=== PATIENT | female | born 1970 | race Caucasian/White ===

== ENCOUNTER → 2016-02-13 | Outpatient (CLI) | payer OTHER ==
[~2016-02-13] MED LIST: AMOX875T PO; CALC-5 PO; CETI10TA84 PO; DOXY100C76 PO; LEVO-371 PO; MULT-506 PO; PRED10TA PO; PRLSR20 PO; RSTOPS OPB; SERT25TA PO
--- NOTE | 2016-02-13 15:49 | MAMMOGRAPHY REPORT ---
BILATERAL DIGITAL SCREENING MAMMOGRAM TOMOSYNTHESIS WITH CAD: 02/13/2016 CLINICAL HISTORY: Routine screening. Patient has no complaints. TECHNIQUE: Breast tomosynthesis in addition to standard 2D mammography was performed. Current study was also evaluated with a Computer Aided Detection (CAD) system. COMPARISON: Comparison is made to exams dated: 02/07/2015 mammogram, 01/02/2013 mammogram, 12/10/19 12 mammogram, 06/01/2010 mammogram, 12/05/2011 mammogram, and 01/02/2013 ultrasound - [facility]. BREAST COMPOSITION: There are scattered areas of fibroglandular density in both breasts. FINDINGS: There are benign coarse calcifications within the right breast. No new suspicious mass, a rchitectural distortion or cluster of microcalcifications is seen. IMPRESSION: ACR BI-RADS CATEGORY 1: NEGATIVE There is no mammographic evidence of malignancy. A 1 year screening mammogram is recommended. The p atient will receive written notification of the results. Approximately 10% of breast cancers are not detected with mammography. A negative mammographic repor t should not delay biopsy if a clinically suggestive mass is present. Adwoa Mcgraw M.D. ay/:02/13/2016 15:24:04 Line Puller: Rhea AQUINO(R)(M), [facility] letter sent: Normal 1/2 BI-RADS Code: ACR BI-RADS Category 1: Negative
== END | disposition home or self-care (01) ==
LOC: C.MAMM 15:00
PROVIDERS: ATTEND Obstetrics & Gynecology
DX: Z12.31 Encounter for screening mammogram for malignant neoplasm of breast (principal)

== ENCOUNTER → 2016-04-11 | Outpatient (CLI) | payer OTHER ==
--- NOTE | 2016-04-11 15:48 | DIAGNOSTIC IMAGING REPORT ---
CHEST 2 VIEWS ROUTINE CLINICAL HISTORY: Shortness breath COMPARISON STUDY: 02/22/2012 FINDINGS: The heart is borderline enlarged. There is no failure. There is no focal pulmonary consolidation. There are no pleural effusions. An opacity at the level of the left cardiophrenic angle is felt to be atelectatic.[ IMPRESSION: No active disease in the chest. Electronically signed by: Oumar Comer M.D. 04/11/2016 3:47 PM Dictated Date/Time: 04/11/2016 3:46 PM
== END | disposition home or self-care (01) ==
LOC: C.RADBC 15:34
PROVIDERS: ATTEND Nurse Practitioner Adult Health
DX: R06.02 Shortness of breath (principal)

== ENCOUNTER → 2016-05-17 | Outpatient (CLI) | payer OTHER ==
[~2016-05-17] MED LIST changes: -LEVO-371 PO; +LEVO5TAB2 PO
--- NOTE | 2016-05-17 08:45 | DIAGNOSTIC IMAGING REPORT ---
CHEST 2 VIEWS ROUTINE HISTORY: COUGH COMPARISON: Chest 04/11/2016. FINDINGS: The lungs are clear. Cardiac silhouette is normal in size. No pleural effusions. No pneumothorax. Cholecystectomy. IMPRESSION: No acute process. Electronically signed by: Tacos Wise M.D. 05/17/2016 8:43 AM Dictated Date/Time: 05/17/2016 8:42 AM
[2016-05-17 10:48] LABS: BASO % 0.3 %; BASO ABS # 0.02 K/uL (0-0.2); COMPLETE YES; EOS % 1.6 %; HEMATOCRIT 39.7 % (37-47); IG% 0.2 %; LYMPH ABS # 1.43 K/uL (1.2-3.4); MEAN CELL VOLUME 84.8 fL (80-100); MEAN CORPUSCULAR HEMOGLOBIN 30.6 pg (25-34); MEAN PLATELET VOLUME 9.1 fL (7.4-10.4); MONO % 5.9 %; PLATELET COUNT 189 K/uL (130-400); RED BLOOD COUNT 4.68 M/uL (4.2-5.4); WHITE BLOOD COUNT 6.22 K/uL (4.8-10.8)
[2016-05-17 10:52] LABS: URINE APPEARANCE CLEAR (CLEAR); URINE BILIRUBIN NEG (NEG); URINE COLOR YELLOW; URINE NITRITE NEG (NEG); URINE SPECIFIC GRAVITY 1.018 (1.000-1.030); UROBILINOGEN NEG (NEG)
[2016-05-17 10:58] LABS: ALT/SGPT 32 U/L (12-78); AST/SGOT 14 U/L (15-37); BLOOD UREA NITROGEN 11 mg/dl (7-18); BUN/CREATININE RATIO 11.8 (10-20); CALCIUM 8.9 mg/dl (8.5-10.1); CARBON DIOXIDE 26 mmol/L (21-32); CHLORIDE 109 mmol/L (98-107); GLUCOSE 92 mg/dl (70-99); POTASSIUM 4.1 mmol/L (3.5-5.1); SODIUM 141 mmol/L (136-145)
[2016-05-17 11:01] LABS: ALB/GLOB RATIO 1.3 (0.9-2); ALKALINE PHOSPHATASE 62 U/L (45-117)
[2016-05-17 11:03] LABS: MANUAL MICROSCOPIC REQUIRED? NO; REVIEW REQ? NO
== END | disposition home or self-care (01) ==
LOC: C.RADBC 08:05
PROVIDERS: ATTEND Nurse Practitioner Adult Health
DX: R05 Cough (principal); R39.15 Urgency of urination; R06.02 Shortness of breath

== ENCOUNTER → 2016-06-06 | Outpatient (CLI) | payer OTHER ==
--- NOTE | 2016-06-06 08:17 | DIAGNOSTIC IMAGING REPORT ---
CT SCAN OF THE CHEST WITHOUT IV CONTRAST CLINICAL HISTORY: Bronchitis and dyspnea. COMPARISON STUDY: Chest x-ray dated 05/17/2016. TECHNIQUE: CT scan of the thorax was performed from the thoracic inlet to the upper abdomen. Images are reviewed in the axial, sagittal, and coronal planes. IV contrast was not administered for this examination as per the referring clinician. CT DOSE: 838.69 mGy.cm FINDINGS: Thyroid: Imaged portions of the thyroid gland are normal in size and attenuation. Coarse calcifications are noted in the right thyroid lobe. Thoracic aorta: The thoracic aorta is normal in caliber and demonstrates standard 3-vessel arch anatomy. Heart: The heart is mildly enlarged and there is a small pericardial effusion. Lungs and pleural spaces: There are small pleural effusions with dependent atelectasis. No airspace consolidation is identified typical for pneumonia. The trachea and central airways are clear. Mediastinum: There is no mediastinal lymphadenopathy. Rayna: Not well assessed without IV contrast. Axillae: There is no axillary lymphadenopathy. Upper abdomen: There is a tiny hiatal hernia. Cholecystectomy clips are noted. Skeletal structures: No lytic or blastic bony lesions are seen. IMPRESSION: 1. Mild cardiac enlargement and small pericardial effusion. 2. Small pleural effusions and dependent atelectasis. 3. There is no airspace consolidation identified typical for pneumonia. Electronically signed by: Kai Craft M.D. 06/06/2016 8:15 AM Dictated Date/Time: 06/06/2016 8:11 AM
[2016-06-06 08:20] LABS: BLOOD UREA NITROGEN 11 mg/dl (7-18); BUN/CREATININE RATIO 13.8 (10-20); CARBON DIOXIDE 25 mmol/L (21-32); CHLORIDE 106 mmol/L (98-107); CREATININE 0.82 mg/dl (0.60-1.20); GLUCOSE 98 mg/dl (70-99); SODIUM 140 mmol/L (136-145)
--- NOTE | 2016-06-06 08:21 | DIAGNOSTIC IMAGING REPORT ---
CT SCAN OF THE PARANASAL SINUSES CLINICAL HISTORY: Chronic sinusitis. COMPARISON STUDY: CT scan of the paranasal sinuses dated 08/07/2006. TECHNIQUE: High-resolution CT scan of the paranasal sinuses is performed. Images are reviewed in the axial, sagittal, and coronal planes. IV contrast was not administered for this examination. FINDINGS: Maxillary antra: Trace dependent mucosal thickening is seen bilaterally. Anterior ethmoid sinuses: Opacified on the right. Clear on the left. Posterior ethmoid sinuses: Subtotally opacified on the right. Moderate mucosal thickening is seen on the left. Sphenoid sinuses: Moderate mucosal thickening is seen in the right. Trace mucosal thickening is seen on left. Frontal sinuses: There is opacification of the right frontal sinus. The left frontal sinus is clear. Ostiomeatal complexes: Significantly narrowed by mucosal thickening bilaterally. Frontoethmoidal and sphenoethmoidal recesses: The sphenoethmoidal recesses are nearly occluded bilaterally. The right frontoethmoidal recess is occluded. The left frontoethmoidal recess is clear. Carotid arteries: The carotid arteries are covered and without septal attachments. Ethmoid roofs: There is asymmetric elevation of the left ethmoid roof as compared to the right. Nasal turbinates: Normal in appearance. Nasal septum: There is mild rightward deviation of the bony nasal septum. Optic nerves: Covered. Orbits: The bony orbits are intact. Orbital contents are normal in appearance. Calvarium: The imaged calvarium is normal in appearance Mastoid air cells: There is a small right mastoid effusion. The left mastoid air cells are clear. Brain parenchyma: Partially visualized brain parenchyma is within normal limits. IMPRESSION: Paranasal sinus disease as above. Electronically signed by: Kai Craft M.D. 06/06/2016 8:19 AM Dictated Date/Time: 06/06/2016 8:15 AM
[2016-06-06 08:43] LABS: CALCIUM 9.4 mg/dl (8.5-10.1)
[2016-06-06 09:26] LABS: BASO % 0.1 %; BASO ABS # 0.01 K/uL (0-0.2); COMPLETE YES; EOS % 1.3 %; HEMATOCRIT 40.2 % (37-47); IG% 0.1 %; LYMPH % 19.9 %; LYMPH ABS # 1.52 K/uL (1.2-3.4); MEAN CELL VOLUME 86.8 fL (80-100); MEAN CORPUSCULAR HEMOGLOBIN 31.3 pg (25-34); MEAN CORPUSCULAR HGB CONC 36.1 g/dl (32-36); MEAN PLATELET VOLUME 9.2 fL (7.4-10.4); MONO % 4.2 %; NEUT % 74.4 %; PLATELET COUNT 206 K/uL (130-400); RED BLOOD COUNT 4.63 M/uL (4.2-5.4); WHITE BLOOD COUNT 7.64 K/uL (4.8-10.8)
[2016-06-06 09:45] LABS: INR 0.9 (0.9-1.1)
[2016-06-08 14:38] LABS: QUANTIF TB AG-NIL <0.00 IU/ML; QUANTIFERON NIL 0.04 IU/ML
[2016-06-19 22:20] LABS: IGE RECEPTOR AB(ANTI-IgE IgG)* <6 ng/mL (<168); IGG SERUM 706 mg/dL (694-1618)
== END | disposition home or self-care (01) ==
LOC: C.CTS 07:18
PROVIDERS: ATTEND Physician Assistant
DX: J20.9 Acute bronchitis, unspecified (principal); R06.02 Shortness of breath; R05 Cough; J32.9 Chronic sinusitis, unspecified; I51.7 Cardiomegaly

== ENCOUNTER → 2016-07-03 | Outpatient (CLI) | payer OTHER ==
--- NOTE | 2016-07-03 07:57 | DIAGNOSTIC IMAGING REPORT ---
CT SCAN OF THE PARANASAL SINUSES CLINICAL HISTORY: Chronic sinusitis. COMPARISON STUDY: CT scan of the paranasal sinuses dated 06/06/2016. TECHNIQUE: High-resolution CT scan of the paranasal sinuses is performed. Images are reviewed in the axial, sagittal, and coronal planes. IV contrast was not administered for this examination. The examination is performed using the fusion protocol. CT DOSE: 553.60 mGy.cm FINDINGS: Maxillary antra: There is near complete opacification of the right maxillary antrum. Advanced mucosal thickening with subtotal opacification is seen in the left maxillary antrum. Anterior ethmoid sinuses: Subtotally opacified bilaterally. Posterior ethmoid sinuses: Mild mucosal thickening seen bilaterally. Sphenoid sinuses: Moderate mucosal thickening is identified, left greater than right. Frothy secretions are present on the left. Frontal sinuses: There is complete opacification of the right frontal sinus. There is subtotal opacification of the left frontal sinus. Ostiomeatal complexes: Occluded bilaterally. Frontoethmoidal and sphenoethmoidal recesses: Occluded bilaterally. Carotid arteries: The carotid arteries are covered and without septal attachments. Ethmoid roofs: There is slightly asymmetric elevation of left ethmoid roof as compared to the right. Nasal turbinates: Normal in appearance. Nasal septum: There is mild rightward deviation of the bony nasal septum. Optic nerves: Covered. Orbits: The bony orbits are intact. Orbital contents are normal in appearance. Calvarium: The imaged calvarium is normal in appearance Mastoid air cells: There is a trace right mastoid effusion. The left mastoid air cells are clear. Brain parenchyma: Partially visualized brain parenchyma is within normal limits. IMPRESSION: Findings are consistent with pansinusitis as above. This has significantly worsened as compared to 06/06/2016 Electronically signed by: Kai Craft M.D. 07/03/2016 7:55 AM Dictated Date/Time: 07/03/2016 7:52 AM
== END | disposition home or self-care (01) ==
LOC: C.CTS 07:31
DX: J34.3 Hypertrophy of nasal turbinates (principal)

== ENCOUNTER → 2016-10-29 | Outpatient (CLI) | payer OTHER ==
[~2016-10-29] MED LIST changes: -CETI10TA84 PO; +LEVO-371 PO; -LEVO5TAB2 PO; -RSTOPS OPB
[2016-10-29 17:15] LABS: BASO % 0.1 %; BASO ABS # 0.01 K/uL (0-0.2); COMPLETE YES; EOS % 0.1 %; HEMATOCRIT 42.9 % (37-47); IG% 0.1 %; LYMPH % 8.5 %; LYMPH ABS # 0.64 K/uL (1.2-3.4); MEAN CELL VOLUME 86.8 fL (80-100); MEAN CORPUSCULAR HGB CONC 35.7 g/dl (32-36); MEAN PLATELET VOLUME 9.5 fL (7.4-10.4); MONO % 1.6 %; NEUT % 89.6 %; PLATELET COUNT 241 K/uL (130-400); RED BLOOD COUNT 4.94 M/uL (4.2-5.4); WHITE BLOOD COUNT 7.55 K/uL (4.8-10.8)
[2016-10-29 17:16] LABS: POTASSIUM 4.5 mmol/L (3.5-5.1)
[2016-10-29 17:18] LABS: PARTIAL THROMBOPLASTIN RATIO 1.1; PROTHROMBIN TIME (PATIENT) 10.4 SECONDS (9.0-12.0)
== END | disposition home or self-care (01) ==
LOC: C.LABBC 12:26
DX: Z01.818 Encounter for other preprocedural examination (principal)

== ENCOUNTER → 2016-11-02 | Day surgery (SDC) | payer OTHER ==
[2016-09-26 10:27] VITALS: Ht 157.5 cm; Wt 65.9 kg
[~2016-11-02] VITALS: Ht 157.5 cm; Wt 65.9 kg
[~2016-11-02] MED LIST changes: +ATROPINE SULFATE 0.1 MG/ML 5ML SYR IV PRN; +CEFAZOLIN 2000 MG/60 ML D5W IV SCH; +DEXAMETHASONE SOD INJ 4 MG/ML VIAL ONE; +DiphenhydrAMINE HCL 50 MG/ML VIAL ONE; +EpHEDrine SULFATE INJ 50 MG/ML AMP IV PRN; +EpINEphrine INJ 1MG/ML AMP 1 MG/ML AMP ONE; +FENTANYL CITRATE INJ 50 MCG/1 ML 2 ML VIAL IV PRN; +FENTANYL CITRATE INJ 50 MCG/1 ML 2 ML VIAL ONE; +GLYCOPYRROLATE INJ 0.2 MG/ML VIAL ONE; +HYDROCODONE/ACETAMOPHEN 5/325MG TAB PO PRN; +LACTATED RINGER'S 1000ML 1,000 ML IV SCH; +LIDOCAINE 4% MPF SOAK 5 ML = 1 DOSE TOP ONE; +LIDOCAINE HCL 2% 2 ML VIAL (20MG/ML) ONE; +LIDOCAINE/EPINEPHRINE 1% INJ 50 ML VIAL ONE; +NEOSTIGMINE METHYLSULFATE 5 MG/5 ML SYR ONE; +ONDANSETRON INJ 2 MG/ML 2 ML VIAL IV PRN; +ONDANSETRON INJ 2 MG/ML 2 ML VIAL ONE; +OXYMETAZOLINE HCL 0.05% NA SPR 15 ML BTL PRN; +OXYMETAZOLINE HCL 0.05% NA SPR 15 ML BTL SCH; +PROMETHAZINE HCL INJ 25 MG/ML 1 ML VIAL ONE; +PROMETHAZINE HCL INJ 6.25 MG in SODIUM CHLORIDE 0.9% 50ML 50 ML IV PRN; +PROPOFOL IV EMULSION 10 MG/ML 20 ML VIAL IV ONE
--- NOTE | 2016-11-02 09:20 | History and Physical: Surg Cnt ---
History & Physical Date Nov 02, 2016. Chief Complaint SINUSITIS History of Present Illness The patient is a 46 year old female with complaints of CHRONIC SINUSITIS DESPITE MAXIMAL MEDICAL THERAPY WITH ANTIBIOTICS AND STEROIDS. POST-RX CT SINUS SHOWS PANSINUSITIS. Past Medical/Surgical History PMH: CHRONIC SINUSITIS, ALLERGIC RHINITIS, DEPRESSION, ANXIETY, LPR PSH: S/P T&A, S/P BMT, S/P WILY, S/P HYSTERECTOMY Additional History Hepatic Disease: No Endocrine Disorder: No Kidney Disease: No Hypertension: No Heart Disease: No Bleeding Tendencies: No Infectious Diseases: No Allergies Coded Allergies: No Known Allergies (Unverified , NONE, 11/02/16) Home Medications Scheduled Amoxicillin & Pot Clavulanate (Augmentin 875-125 mg), 1 TAB PO BID Calcium-Magnesium W/ Vitamin D (Calcium 500), 3 TABS PO DAILY Doxycycline Monohydrate (Monodox), 100 MG PO BID Levocetirizine Dihydrochloride (Xyzal), 1 TAB PO QAM Multivitamin (Multivitamin), 1 TAB PO DAILY Prednisone (Prednisone), 10 MG PO UD Sertraline (Zoloft), 25 MG PO QPM Scheduled PRN Omeprazole (Prilosec), 20 MG PO DAILY PRN for heartburn Physical Examination Skin: warm/dry, no rash Eyes: normal inspection, EOMI, sclerae normal ENT: + pertinent finding (MILD R DNS, MODERATE B ITH) Head: normocephalic, atraumatic Neck: supple, no adenopathy, trachea midline Respiratory/Chest: lungs clear, normal breath sounds, no respiratory distress Cardiovascular: regular rate, rhythm, no edema, no murmur Diagnosis CRS, DNS, B ITH Plan of Treatment IMAGE-GUIDED B FESS, B INF TURB REDUCTION, POSSIBLE SEPTOPLASTY
--- NOTE | 2016-11-02 10:23 | [facility] Operative Report ---
Operative Report Operative Date Nov 02, 2016. Pre-Operative Diagnosis Chronic sinusitis, Bilateral Inferior Turbinate Hypertrophy Post-Operative Diagnosis Same as preop Procedure(s) Performed Bilateral Image Guided Endoscopic Sinus Surgery, Bilateral Inferior Turbinate Reduction Surgeon Dr. Gaspar Applications Instructor Surgeon(s) None Estimated Blood Loss 10 mL Findings POLYPOID MUCOSAL THICKENING INVOLVING ALL PARANASAL SINUSES AND MODERATE B ITH Specimens None I attest to the content of the Intraoperative Record and any orders documented therein. Any exceptions are noted below.
--- NOTE | 2016-11-02 10:26 | Discharge Instructions ---
Discharge Instructions Date of Service Nov 02, 2016. Admission Reason for Admission: Hypertrophy Of Both Nasal Turbinates Discharge Discharge Diagnosis / Problem: SAME Discharge Goals Goal(s): Therapeutic intervention Activity Recommendations Activity Limitations: as noted below 1. LIGHT ACTIVITY AND NO NOSE BLOWING FOR 2 WEEKS 2. NO DRIVING WHILE ON NORCO . Current Hospital Diet Patient's current hospital diet: Discharge Diet Recommended Diet: Regular Diet Procedures Procedures Performed: Bilateral Image Guided Endoscopic Sinus Surgery, Bilateral Inferior Turbinate Reduction Pending Studies Studies pending at discharge: no Medical Emergencies . Who to Call and When: Medical Emergencies: If at any time you feel your situation is an emergency, please call 911 immediately. . Non-Emergent Contact Non-Emergency issues call your: Surgeon . . "Provider Documentation" section prepared by Wes Gaspar. . VTE Core Measure Inpt VTE Proph given/why not?: SCD's
--- NOTE | 2016-11-02 11:46 | OPERATIVE REPORT ---
DATE OF OPERATION: 11/02/2016 PREOPERATIVE DIAGNOSES: 1. Chronic rhinosinusitis. 2. Bilateral inferior turbinate hypertrophy. POSTOPERATIVE DIAGNOSES: 1. Chronic rhinosinusitis. 2. Bilateral inferior turbinate hypertrophy. PROCEDURES: Image guided bilateral endoscopic sinus surgery consisting of: 1. Bilateral maxillary antrostomies. 2. Bilateral complete ethmoidectomies. 3. Bilateral sphenoidotomies. 4. Balloon sinuplasty assisted bilateral frontal sinusotomies. 5. Bilateral inferior turbinate outfracture and turbinoplasty. SURGEON: Dr. Wes Gaspar. ANESTHESIA: General endotracheal. ESTIMATED BLOOD LOSS: 10 mL. FINDINGS: 1. Polypoid mucosal thickening involving all the paranasal sinuses bilaterally. 2. Moderate bilateral inferior turbinate hypertrophy. SPECIMENS: None. COMPLICATIONS: None. INDICATIONS FOR THE PROCEDURE: The patient is a 46-year-old female with a history of chronic sinusitis, which has been refractory to maximal medical therapy including systemic antibiotics and steroids. She was given perioperative antibiotics and steroids and presents for the above-mentioned procedures on an outpatient elective basis. DESCRIPTION OF PROCEDURE: After informed consent had been obtained from the patient, the patient was wheeled to the operating room and placed on the operating table in the supine position. Monitors were placed. After induction of general endotracheal anesthesia, the patient was prepped in the usual fashion for image guided sinus surgery. The [employer] headset was placed over the forehead and was registered, verified and calibrated and used for the frontal and sphenoid sinus portions of the case primarily. Lidocaine and epinephrine pledgets were placed in the bilateral nasal cavities and pressure applied. The left-sided pledgets were removed. A freer elevator was used to medialize the left middle turbinate and the left middle turbinate and lateral nasal wall were injected with 1% lidocaine with 1:100,000 epinephrine. A lidocaine and epinephrine pledget was then placed in the left middle meatus. The right side was then addressed in a similar fashion. The left-sided pledget was removed and a [place] elevator was used to incise the uncinate process, which was removed using straight Pacheco-Cut forceps and powered instrumentation. The natural ostium of the left maxillary sinus was identified and this was enlarged anteriorly, inferiorly, and posteriorly using backbiting forceps and powered instrumentation. A complete ethmoidectomy was then performed using powered instrumentation. A transethmoid approach to the sphenoid sinus was then undertaken and the sphenoid sinus was entered. The natural ostium of the sphenoid sinus was enlarged medially and inferiorly using powered instrumentation. Using a frontal sinus suction under image guidance, the left frontal sinus was cannulated. A #7 frontal sinus balloon was then inserted into the left frontal sinus and inflated to 12 atmospheres of pressure at 2 different locations to dilate the left frontal recess. After this had been performed, powered instrumentation was used to perform a left frontal sinusotomy. A pledget was then placed into the left middle meatus. The right side was then addressed in a similar fashion. The intraoperative findings were polypoid mucosal thickening involving all the paranasal sinuses bilaterally, but most impressively involving the ethmoid sinuses. A Gold elevator was then used to infracture and subsequently outfracture the inferior turbinates bilaterally. These were injected with 1% lidocaine with 1:100,000 epinephrine. A 2.0-mm turbinate blade using powered instrumentation was then used to perform bilateral inferior turbinoplasties in a submucosal fashion. The sinonasal cavities were then suctioned. Merogel was then placed in the bilateral ethmoid sinuses/middle meati. An orogastric tube was placed and the stomach was suctioned free of any stomach contents. This marked the end of the case. The patient tolerated the procedure well. There were no complications. All the instrumentation was removed from the patient. The patient was extubated and transferred to the recovery room in stable condition. I attest to the content of the Intraoperative Record and any orders documented therein. Any exception s are noted below.
[2016-11-02 12:20] VITALS: BP 133/74; PULSE 76; O2SAT 95
--- NOTE | 2016-11-02 12:31 | Anesthesia Progress Nt - [facility] ---
Anesthesia Post Op Note Date & Time Nov 02, 2016 at 12:31 Vital Signs Pain Intensity: 4 Vital Signs Past 12 Hours Date Time Temp Pulse Resp B/P (MAP) Pulse Ox O2 Delivery O2 Flow Rate FiO2 11/02/16 12:20 76 16 133/74 (93) 95 Room Air 11/02/16 11:40 36.4 74 16 128/84 (99) 92 Room Air 11/02/16 11:37 84 17 94 11/02/16 11:37 81 17 11/02/16 11:32 72 14 92 11/02/16 11:32 72 14 11/02/16 11:31 82 13 135/79 95 11/02/16 11:31 80 13 11/02/16 11:30 37.3 72 13 135/79 93 Room Air 11/02/16 11:26 67 15 134/81 97 11/02/16 11:26 69 15 11/02/16 11:21 65 17 135/87 98 11/02/16 11:21 66 17 11/02/16 11:16 76 19 11/02/16 11:16 76 19 133/88 94 11/02/16 11:11 70 7 11/02/16 11:11 69 7 139/84 98 11/02/16 11:06 71 6 11/02/16 11:06 71 6 132/85 98 11/02/16 11:01 68 7 11/02/16 11:01 69 7 127/78 98 11/02/16 10:56 72 10 11/02/16 10:56 73 10 136/80 99 11/02/16 10:51 67 15 11/02/16 10:51 67 15 130/79 99 11/02/16 10:46 66 13 11/02/16 10:46 67 13 129/80 99 11/02/16 10:41 74 19 11/02/16 10:41 77 19 130/82 99 11/02/16 10:37 134/71 11/02/16 10:36 79 98 11/02/16 10:36 37.1 88 12 134/71 97 Humidified Oxygen 8 Mask 11/02/16 10:36 79 11/02/16 08:37 36.5 78 16 137/91 (106) 96 Room Air Notes Mental Status: alert / awake / arousable, participated in evaluation Pt Amnestic to Procedure: Yes Nausea / Vomiting: adequately controlled Pain: adequately controlled Airway Patency, RR, SpO2: stable & adequate BP & HR: stable & adequate Hydration State: stable & adequate Anesthetic Complications: no major complications apparent
== END | disposition home or self-care (01) ==
LOC: X.SURG 07:30
DX: J32.9 Chronic sinusitis, unspecified (principal); J34.3 Hypertrophy of nasal turbinates; Z90.49 Acquired absence of other specified parts of digestive tract; Z90.710 Acquired absence of both cervix and uterus; Z87.01 Personal history of pneumonia (recurrent); K21.9 Gastro-esophageal reflux disease without esophagitis; Z90.89 Acquired absence of other organs; F41.9 Anxiety disorder, unspecified

== ENCOUNTER → 2017-02-18 | Outpatient (CLI) | payer OTHER ==
[~2017-02-18] MED LIST changes: -ATROPINE SULFATE 0.1 MG/ML 5ML SYR IV PRN; -CEFAZOLIN 2000 MG/60 ML D5W IV SCH; -DEXAMETHASONE SOD INJ 4 MG/ML VIAL ONE; -DiphenhydrAMINE HCL 50 MG/ML VIAL ONE; -EpHEDrine SULFATE INJ 50 MG/ML AMP IV PRN; -EpINEphrine INJ 1MG/ML AMP 1 MG/ML AMP ONE; -FENTANYL CITRATE INJ 50 MCG/1 ML 2 ML VIAL IV PRN; -FENTANYL CITRATE INJ 50 MCG/1 ML 2 ML VIAL ONE; -GLYCOPYRROLATE INJ 0.2 MG/ML VIAL ONE; -HYDROCODONE/ACETAMOPHEN 5/325MG TAB PO PRN; -LACTATED RINGER'S 1000ML 1,000 ML IV SCH; -LEVO-371 PO; +LEVO5TAB2 PO; -LIDOCAINE 4% MPF SOAK 5 ML = 1 DOSE TOP ONE; -LIDOCAINE HCL 2% 2 ML VIAL (20MG/ML) ONE; -LIDOCAINE/EPINEPHRINE 1% INJ 50 ML VIAL ONE; -NEOSTIGMINE METHYLSULFATE 5 MG/5 ML SYR ONE; -ONDANSETRON INJ 2 MG/ML 2 ML VIAL IV PRN; -ONDANSETRON INJ 2 MG/ML 2 ML VIAL ONE; -OXYMETAZOLINE HCL 0.05% NA SPR 15 ML BTL PRN; -OXYMETAZOLINE HCL 0.05% NA SPR 15 ML BTL SCH; -PROMETHAZINE HCL INJ 25 MG/ML 1 ML VIAL ONE; -PROMETHAZINE HCL INJ 6.25 MG in SODIUM CHLORIDE 0.9% 50ML 50 ML IV PRN; -PROPOFOL IV EMULSION 10 MG/ML 20 ML VIAL IV ONE
--- NOTE | 2017-02-19 07:48 | MAMMOGRAPHY REPORT ---
BILATERAL DIGITAL SCREENING MAMMOGRAM TOMOSYNTHESIS WITH CAD: 02/18/2017 CLINICAL HISTORY: Routine screening. Patient has no complaints. TECHNIQUE: Breast tomosynthesis in addition to standard 2D mammography was performed. Current study was also evaluated with a Computer Aided Detection (CAD) system. COMPARISON: Comparison is made to exams dated: 02/13/2016 mammogram, 02/07/2015 mammogram, 01/02/2013 mammogram, 06/01/2010 mammogram, 01/02/2013 ultrasound, and 12/10/2011 mammogram - [facility]. BREAST COMPOSITION: There are scattered areas of fibroglandular density in both breasts. FINDINGS: There is fluctuating nodularity in the right breast, most likely fluctuating cysts. No kody picious spiculated or irregular mass, architectural distortion or cluster of suspicious microcalcific ations is seen. IMPRESSION: ACR BI-RADS CATEGORY 1: NEGATIVE There is no mammographic evidence of malignancy. A 1 year screening mammogram is recommended. The pa tient will receive written notification of the results. Approximately 10% of breast cancers are not detected with mammography. A negative mammographic report should not delay biopsy if a clinically suggestive mass is present. Adwoa Mcgraw M.D. ay/:02/18/2017 16:50:38 Key Carrier: Lesa AQUINO(Anna)(M), [facility] letter sent: Normal 1/2 BI-RADS Code: ACR BI-RADS Category 1: Negative
== END | disposition home or self-care (01) ==
LOC: C.MAMM 16:18
PROVIDERS: ATTEND Obstetrics & Gynecology
DX: Z12.31 Encounter for screening mammogram for malignant neoplasm of breast (principal)

== ENCOUNTER → 2017-03-12 | Outpatient (CLI) | payer OTHER | END | disposition home or self-care (01) | LOC: C.PAPS 16:46 | PROVIDERS: ATTEND Obstetrics & Gynecology | DX: Z12.4 Encounter for screening for malignant neoplasm of cervix (principal) ==